=== PATIENT | female | born 1970 | race Caucasian/White ===

== ENCOUNTER 2018-04-28 10:13 | Emergency (ER) | payer OTHER, MEDICAID ==
[2018-04-28] MEDS: HYDROCODONE/APAP (5/325) TAB PO (12:26)
== END 2018-04-28 13:56 | disposition home or self-care (01) ==
LOC: FTE 10:13
DX: M79.672 Pain in left foot (principal); I10 Essential (primary) hypertension
CPT/HCPCS: 73630; 73630-LT; 99283

== ENCOUNTER 2018-09-17 07:02 | Inpatient (IN) | payer OTHER ==
[2018-09-17 10:34] LABS: IRON 16 ug/dl (35-150)
[2018-09-17 10:44] LABS: % IRON SATURATION 3 % SAT (22-52); TOTAL IRON BINDING CAPACITY 482 ug/dl (241-421)
[2018-09-17 11:57] LABS: IMMEDIATE SPIN CROSSMATCH 1 1
[2018-09-17] MEDS: ACETAMINOPHEN 325 MG TAB PO (13:05)
[2018-09-17] MEDS: FOLIC ACID 1 MG TAB PO (18:30)
[2018-09-17] MEDS: SOD FERRIC GLUC COMPLX 125 MG in SOD CHLORIDE 0.9% 100 ML IVPB (18:30)
[2018-09-17 19:23] LABS: ADD MAN DIFF? NO
[2018-09-17 19:24] LABS: ABNORMAL IP MESSAGE 1; BASOPHIL # 0.1 10^3/ul (0.0-0.1); EOSINOPHILS % 0.4 % (0.0-7.0); HEMATOCRIT 32.7 % (37.0-47.0); HEMOGLOBIN 9.3 g/dl (12.0-16.0); LYMPHOCYTES # 2.3 10^3/ul (0.8-2.9); LYMPHOCYTES % 19.9 % (15.0-51.0); MEAN CORPUSCULAR HEMOGLOBIN 18.5 pg (29.0-33.0); MEAN CORPUSCULAR HGB CONC 28.4 g/dl (32.0-37.0); MEAN CORPUSCULAR VOLUME 64.9 fl (82.0-101.0); MONOCYTES % 8.3 % (0.0-11.0); PLATELET COUNT 273 10^3/UL (140-415); RED BLOOD COUNT 5.04 10^6/ul (4.20-5.40)
[2018-09-17 19:24] LABS: WHITE BLOOD COUNT 11.4 10^3/ul (4.8-10.8)
[2018-09-17 19:26] LABS: POSITIVE DIFF @See below
[2018-09-17] MEDS: METOPROLOL 25 MG TAB PO (20:06)
[2018-09-18 06:24] LABS: ADD MAN DIFF? NO
[2018-09-18 06:28] LABS: ABNORMAL IP MESSAGE 1; BASOPHIL # 0.2 10^3/ul (0.0-0.1); BASOPHILS % 1.7 % (0.0-2.0); EOSINOPHILS # 0.3 10^3/ul (0.0-0.5); EOSINOPHILS % 2.7 % (0.0-7.0); HEMATOCRIT 32.7 % (37.0-47.0); HEMOGLOBIN 9.5 g/dl (12.0-16.0); LYMPHOCYTES # 1.8 10^3/ul (0.8-2.9); LYMPHOCYTES % 19.8 % (15.0-51.0); MEAN CORPUSCULAR HEMOGLOBIN 18.6 pg (29.0-33.0); MEAN CORPUSCULAR HGB CONC 29.1 g/dl (32.0-37.0); MEAN CORPUSCULAR VOLUME 64.1 fl (82.0-101.0); MONOCYTE # 0.9 10^3/ul (0.3-0.9); MONOCYTES % 9.8 % (0.0-11.0); NEUTROPHIL # 6.1 10^3/ul (1.6-7.5); NEUTROPHILS % 65.8 % (39.0-77.0); PLATELET COUNT 285 10^3/UL (140-415); RED CELL DISTRIBUTION WIDTH 23.6 % (11.5-14.5)
[2018-09-18 06:28] LABS: WHITE BLOOD COUNT 9.2 10^3/ul (4.8-10.8)
[2018-09-18 06:34] LABS: POSITIVE DIFF @See below
[2018-09-18 06:46] LABS: IRON 123 ug/dl (35-150)
[2018-09-18 06:54] LABS: ALANINE AMINOTRANSFERASE 11 IU/L (13-69); ALBUMIN 4.2 g/dl (3.3-4.9); ALBUMIN/GLOBULIN RATIO 1.23; ALKALINE PHOSPHATASE 51 IU/L (42-121); ANION GAP 11 (5-13); ASPARTATE AMINO TRANSFERASE 35 IU/L (15-46); BILIRUBIN,INDIRECT 0.8 mg/dl (0-1.1); BILIRUBIN,TOTAL 0.8 mg/dl (0.2-1.3); BLOOD UREA NITROGEN 8 mg/dl (7-20); CALCIUM 9.5 mg/dl (8.4-10.2); CARBON DIOXIDE 21 mmol/L (21-31); CHLORIDE 108 mmol/L (97-110); CREATININE 0.55 mg/dl (0.44-1.00); Estimated GFR > 60 mL/min (>60); GLUCOSE 100 mg/dl (70-220); POTASSIUM 3.9 mmol/L (3.5-5.1); SODIUM 140 mmol/L (135-144); TOTAL PROTEIN 7.6 g/dl (6.1-8.1)
[2018-09-18 06:56] LABS: % IRON SATURATION 26 % SAT (22-52); TOTAL IRON BINDING CAPACITY 468 ug/dl (241-421)
[2018-09-18] MEDS: FOLIC ACID 1 MG TAB PO (08:52)
[2018-09-18] MEDS: PANTOPRAZOLE (EC) 40 MG TAB PO (08:52)
[2018-09-18] MEDS: METOPROLOL 25 MG TAB PO (08:53)
[2018-09-18] MEDS: SOD FERRIC GLUC COMPLX 125 MG in SOD CHLORIDE 0.9% 100 ML IVPB (13:45)
== END 2018-09-18 17:35 | disposition home or self-care (01) | DRG 812 ==
LOC: TEL 07:02
PROC: 30233N1 Transfusion of Nonautologous Red Blood Cells into Peripheral Vein, Percutaneous Approach (ICD-10-PCS; principal; 2018-09-17)
DX: D50.9 Iron deficiency anemia, unspecified (principal); R07.9 Chest pain, unspecified; R06.4 Hyperventilation; N92.1 Excessive and frequent menstruation with irregular cycle; I10 Essential (primary) hypertension
CPT/HCPCS: 36430; 76830; 76856; 80053; 83540; 85025; 86850; 86900; 86901; 86920